=== PATIENT | female | born 2000 | race Caucasian/White ===

== ENCOUNTER 2019-09-29 18:20 | Emergency (ER) | payer BC ==
[~2019-09-29] VITALS: Ht 154.9 cm; Wt 40.0 kg
[2019-09-29 19:13] LABS: BILIRUBIN,URINE SMALL (NEG); CLARITY,URINE CLEAR; COLOR,URINE YELLOW; NITRITE,URINE NEGATIVE (NEG); PH,URINE 5.5 (<5.0-8.0); PROTEIN,URINE NEGATIVE (NEG-TRACE)
[2019-09-29] MEDS ORDERED: ONDANSETRON PF 4 MG/2 ML VIAL. IV ONE (19:15)
[2019-09-29] MEDS ORDERED: FAMOTIDINE 20 MG/2 ML VIAL IVP ONE (19:15)
[2019-09-29] MEDS ORDERED: IV NORMAL SALINE 1000ML BAG 1,000 ML IV ONE (19:15)
[2019-09-29 19:18] LABS: SQUAMOUS EPITHELIAL CELL,UR MANY /LPF
[2019-09-29 19:19] LABS: BACTERIA,URINE MODERATE /HPF (0-FEW); RBC,URINE OCC /HPF (0-2)
[2019-09-29 19:31] LABS: BASO # 0.1 x10^3/uL (0.0-0.2); BASO % 1 % (0-3); EOS # 0.1 x10^3/uL (0.0-0.7); EOS % 1 % (0-3); HEMATOCRIT 46.3 % (36.0-47.0); LYMPH # 2.4 x10^3/uL (1.0-4.8); LYMPH % 18 % (24-48); MEAN CORPUSCULAR HEMOGLOBIN 28 pg (25-35); MEAN CORPUSCULAR HGB CONC 35 g/dL (31-37); MEAN CORPUSCULAR VOLUME 82 fL (79-100); MONO # 1.4 x10^3/uL (0.0-1.1); MONO % 10 % (0-9); NEUT # 9.5 x10^3/uL (1.8-7.7); NEUT % 70 % (31-73); PLATELET COUNT 460 x10^3/uL (140-400); RED BLOOD COUNT 5.67 x10^6/uL (3.50-5.40); RED CELL DISTRIBUTION WIDTH 13.9 % (11.5-14.5); WHITE BLOOD COUNT 13.5 x10^3/uL (4.0-11.0)
[2019-09-29 19:34] LABS: CALCIUM 10.2 mg/dL (8.5-10.1); CREATININE 1.1 mg/dL (0.6-1.0); GFR 63.3; POTASSIUM 3.7 mmol/L (3.5-5.1)
[2019-09-29 19:40] LABS: ALBUMIN 5.4 g/dL (3.4-5.0); ALBUMIN/GLOBULIN RATIO 1.3 (1.0-1.7); MAGNESIUM 2.2 mg/dL (1.8-2.4); TOTAL BILIRUBIN 2.6 mg/dL (0.2-1.0); TOTAL PROTEIN 9.7 g/dL (6.4-8.2)
[2019-09-29] MEDS ORDERED: IV NORMAL SALINE 500ML BAG 500 ML IV ONE (20:00)
[2019-09-29] MEDS ORDERED: PROCHLORPERAZINE 10 MG/2 ML VIAL. IV ONE (20:15)
[2019-09-29 20:40] VITALS: BP 117/74
[2019-09-29] MEDS ORDERED: PROM25SU33 RC (20:54)
[2019-09-29] MEDS ORDERED: FAMO20TA5 PO (20:54)
--- NOTE | 2019-09-29 20:54 | PHYS DOC ---
Past Medical History Past Medical History: No Pertinent History (ZACH GARZA TOP LIFT NAILER) Smoking Status: Never Smoker Alcohol Use: None (ZACH GARZA APRN) General Adult EDM: Chief Complaint: NAUSEA/VOMITING/DIARRHA HPI: HPI: Patient is a 19 year old female who presents to the emergency department with complaints of nausea, vomiting, and epigastric pain for last 2 days. Patient states that she has been unable to keep anything down today. She denies any fever, cough, shortness of breath, dysuria, hematuria, hematemesis, low back pain, body aches, fatigue, headache, weakness, numbness, or tingling. Patient reports that her last menstrual cycle was approximately 3 weeks ago she states that the only control that she uses condoms. She denies any irregular vaginal discharge, vaginal odor, or vaginal bleeding. She currently denies any epigastric pain. Patient states she has felt lightheaded with position changes today but denies any syncopal episodes or headache. She reports that the pain is triggered by vomiting, and describes it as a burning sensation. She denies any alleviating factors. (ZACH GARZA TOP LIFT NAILER) Review of Systems: Review of Systems: Constitutional: Denies fever or chills. [] Eyes: Denies change in visual acuity. [] HENT: Denies nasal congestion or sore throat. [] Respiratory: Denies cough or shortness of breath. [] Cardiovascular: Denies chest pain or edema. [] GI: See HPI : Denies dysuria. [] Musculoskeletal: Denies back pain or joint pain. [] Integument: Denies rash. [] Neurologic: Denies headache, see HPI Endocrine: Denies polyuria or polydipsia. [] Lymphatic: Denies swollen glands. [] Psychiatric: Denies depression or anxiety. [] (ZACH GARZA APRN) Heart Score: Risk Factors: Risk Factors: DM, Current or recent (<one month) smoker, HTN, HLP, family history of CAD, obesity. Risk Scores: Score 0 - 3: 2.5% MACE over next 6 weeks - Discharge Home Score 4 - 6: 20.3% MACE over next 6 weeks - Admit for Clinical Observation Score 7 - 10: 72.7% MACE over next 6 weeks - Early Invasive Strategies (ZACH GARZA APRN) Current Medications: Current Medications Medications (Trade) Dose Ordered Sig/Jed Start Time Stop Time Status Last Admin Dose Admin Famotidine (Pepcid Vial) 20 mg 1X ONCE 09/29/19 19:15 09/29/19 19:21 DC 09/29/19 19:27 20 MG Ondansetron HCl (Zofran) 4 mg 1X ONCE 09/29/19 19:15 09/29/19 19:21 DC 09/29/19 19:27 4 MG Prochlorperazine Edisylate (Compazine) 10 mg 1X ONCE 09/29/19 20:15 09/29/19 20:16 DC 09/29/19 20:18 10 MG Sodium Chloride 500 ml @ 500 mls/hr 1X ONCE 09/29/19 20:00 09/29/19 20:59 09/29/19 20:00 500 MLS/HR (ZACH GARZA APRN) Allergies: Allergies: Allergies Coded Allergies Type Severity Reaction Last Updated Verified No Known Drug Allergies 09/29/19 No (ZACH GARZA APRN) Physical Exam: PE: Constitutional: Well developed, well nourished, no acute distress, ill appearance, HENT: Normocephalic, atraumatic, bilateral external ears normal, oropharynx dry, dry mucous membranes, nose normal. [] Eyes: PERRLA, EOMI, conjunctiva normal, no discharge. [] Neck: Normal range of motion, no stridor. [] Cardiovascular:Heart rate regular rhythm Lungs & Thorax: Bilateral breath sounds clear to auscultation, respirations even and unlabored, no retractions, no respiratory distress [] Abdomen: Bowel sounds normal, soft, epigastric tenderness to palpation, no rebound tenderness, no guarding, no masses, no pulsatile masses. [] Skin: Warm, dry, no erythema, no rash. [] Back: No CVA tenderness. [] Extremities: No cyanosis, ROM intact, no edema. [] Neurologic: Alert and oriented X 3, no focal deficits noted. [] Psychologic: Affect normal, judgement normal, mood normal. [] (ZACH GARZA APRN) Current Patient Data: Labs: Laboratory Tests Test 6/21/20 18:34 09/29/19 18:41 09/29/19 19:15 Urine Collection Type Unknown Urine Color Yellow Urine Clarity Clear Urine pH 5.5 (<5.0-8.0) Urine Specific [place] >=1.030 (1.000-1.030) Urine Protein Negative mg/dL (NEG-TRACE) Urine Glucose (UA) Negative mg/dL (NEG) Urine Ketones (Stick) >=80 mg/dL (NEG) Urine Blood Negative (NEG) Urine Nitrite Negative (NEG) Urine Bilirubin Small (NEG) Urine Urobilinogen Dipstick 1.0 mg/dL (0.2 mg/dL) Urine Leukocyte Esterase Small (NEG) Urine RBC Occ /HPF (0-2) Urine WBC 5-10 /HPF (0-4) Urine Squamous Epithelial Cells Many /LPF Urine Bacteria Moderate /HPF (0-FEW) Urine Mucus Marked /LPF POC Urine HCG, Qualitative Hcg negative (Negative) White Blood Count 13.5 x10^3/uL (4.0-11.0) H Red Blood Count 5.67 x10^6/uL (3.50-5.40) H Hemoglobin 16.0 g/dL (12.0-15.5) H Hematocrit 46.3 % (36.0-47.0) Mean Corpuscular Volume 82 fL (79-100) Mean Corpuscular Hemoglobin 28 pg (25-35) Mean Corpuscular Hemoglobin Concent 35 g/dL (31-37) Red Cell Distribution Width 13.9 % (11.5-14.5) Platelet Count 460 x10^3/uL (140-400) H Neutrophils (%) (Auto) 70 % (31-73) Lymphocytes (%) (Auto) 18 % (24-48) L Monocytes (%) (Auto) 10 % (0-9) H Eosinophils (%) (Auto) 1 % (0-3) Basophils (%) (Auto) 1 % (0-3) Neutrophils # (Auto) 9.5 x10^3/uL (1.8-7.7) H Lymphocytes # (Auto) 2.4 x10^3/uL (1.0-4.8) Monocytes # (Auto) 1.4 x10^3/uL (0.0-1.1) H Eosinophils # (Auto) 0.1 x10^3/uL (0.0-0.7) Basophils # (Auto) 0.1 x10^3/uL (0.0-0.2) Sodium Level 135 mmol/L (136-145) L Potassium Level 3.7 mmol/L (3.5-5.1) Chloride Level 94 mmol/L (98-107) L Carbon Dioxide Level 21 mmol/L (21-32) Anion Gap 20 (6-14) H Blood Urea Nitrogen 19 mg/dL (7-20) Creatinine 1.1 mg/dL (0.6-1.0) H Estimated GFR (Cockcroft-Gault) 63.3 BUN/Creatinine Ratio 17 (6-20) Glucose Level 97 mg/dL (70-99) Calcium Level 10.2 mg/dL (8.5-10.1) H Magnesium Level 2.2 mg/dL (1.8-2.4) Total Bilirubin 2.6 mg/dL (0.2-1.0) H Aspartate Amino Transferase (AST) 20 U/L (15-37) Alanine Aminotransferase (ALT) 25 U/L (14-59) Alkaline Phosphatase 79 U/L (46-116) Total Protein 9.7 g/dL (6.4-8.2) H Albumin 5.4 g/dL (3.4-5.0) H Albumin/Globulin Ratio 1.3 (1.0-1.7) Lipase 119 U/L (73-393) Laboratory Tests 09/29/19 19:15 Laboratory Tests 09/29/19 19:15 Vital Signs: Vital Signs Date Time Temp Pulse Resp B/P (MAP) Pulse Ox O2 Delivery O2 Flow Rate FiO2 09/29/19 18:45 98.4 61 16 141/94 (110) 100 Room Air 98.4 (ZACH GARZA APRN) EKG: EKG: [] (ZACH GARZA APRN) Radiology/Procedures: Radiology/Procedures: [] (ZACH GARZA APRN) Course & Med Decision Making: Course & Med Decision Making Pertinent Labs and Imaging studies reviewed. (See chart for details) Patient is a 19-year-old female who presented to the emergency department with complaints of 2 days of nausea and vomiting. Work-up included a CBC, CMP, UA, lipase, and magnesium level. Treatment included 1500 mL of normal saline, 4 mg of Zofran, 20 mg of alert for Pepcid, and 10 mg of Compazine CBC revealed a white count of 13.5, otherwise unremarkable; CMP revealed a sodium of 135, chloride of 94, anion gap of 20, creatinine of 1.1, total bilirubin of 2.6, and a calcium of 10.2; UA revealed a high specific gravity with greater than 80 ketones and 5-10 white blood cells, many squamous cells and moderate bacteria. Patient's urine hCG was negative. UA is likely to be contaminated. Will prescribe patient Phenergan suppositories and Pepcid. Encouraged the patient to follow a clear liquid diet for 24 hours then advance t o bland food morphine and as tolerated. Advised patient to follow-up with her primary provider if symptoms do not improve in 2 days. Patient verbalized an understanding of home care, medications, follow-up, and return to ED instructions and was in agreement with the plan of care. [] (ZACH GARZA APRN) Dragon Disclaimer: [place] Disclaimer: This electronic medical record was generated, in whole or in part, using a voice recognition dictation system. (ZACH GARZA APRN) Departure Departure Impression: Primary Impression: Nausea & vomiting Qualified Codes: R11.2 - Nausea with vomiting, unspecified Additional Impression: Acute gastritis without hemorrhage Qualified Codes: K29.00 - Acute gastritis without bleeding Disposition: HOME, SELF-CARE Condition: STABLE Referrals: NO PCP (PCP) Patient Instructions: Gastritis, Adult, [id number], Nausea and Vomiting, [id number] Additional Instructions: Fill prescriptions and use them as directed. Recommend clear fluids for the next 24 hours. Then you may advance to bland foods such as bananas, rice, applesauce, and dry toast. Follow-up with your primary care doctor in the next 1-2 days. Return to the emergency room if your symptoms worsen. Scripts Famotidine (FAMOTIDINE) 20 Mg Tablet 20 MG PO BID for 10 Days, #20 TAB 0 Refills Prov: ZACH GARZA APRN 09/29/19 Promethazine Hcl (PROMETHAZINE HCL) 25 Mg Supp.rect 25 MG RC Q6H PRN for NAUSEA/VOMITING for 3 Days, #12 SUPP.RECT 0 Refills Prov: ZACH GARZA APRN 09/29/19 Justicifation of Admission Dx: Justifications for Admission: Justification of Admission Dx: No (ZACH GARZA APRN) Attending Signature Attending Signature I have reviewed the PA/REAL ESTATE ATTORNEY's note and plan of care. I was available for consult ation as needed during the patient's visit in the emergency department. I agree with the clinical impression, plan, and disposition. (SERGIO BAÑUELOS DO) ZACH GARZA APRN Sep 29, 2019 20:54 SERGIO BAÑUELOS DO Sep 30, 2019 02:55
== END 2019-09-29 21:09 | disposition home or self-care (01) ==
LOC: ER 18:20
DX: K29.00 Acute gastritis without bleeding (principal); R11.2 Nausea with vomiting, unspecified; R10.13 Epigastric pain; R42 Dizziness and giddiness; Z79.899 Other long term (current) drug therapy
CPT/HCPCS: 36415; 80053; 81001; 81025; 83690; 83735; 85025; 87086; 96374; 96375; 99284; J0780; J2405; J3490; J7030; J7040

== ENCOUNTER 2020-09-15 23:46 | Emergency (ER) | payer BC ==
[~2020-09-15] VITALS: Ht 154.9 cm; Wt 44.6 kg
[~2020-09-15 23:46] MED LIST: FAMO20TA5 PO; PROM25SU33 RC
[2020-09-16 00:26] LABS: BILIRUBIN,URINE NEGATIVE (NEG); CLARITY,URINE CLEAR; COLOR,URINE YELLOW; NITRITE,URINE NEGATIVE (NEG); PH,URINE 8.5 (<5.0-8.0); PROTEIN,URINE NEGATIVE (NEG-TRACE)
[2020-09-16 00:31] LABS: BACTERIA,URINE FEW /HPF (0-FEW)
[2020-09-16 00:44] LABS: BASO # 0.1 x10^3/uL (0.0-0.2); BASO % 1 % (0-3); EOS % 0 % (0-3); HEMATOCRIT 37.1 % (36.0-47.0); HEMOGLOBIN 12.5 g/dL (12.0-15.5); LYMPH % 10 % (24-48); MEAN CORPUSCULAR HEMOGLOBIN 26 pg (25-35); MEAN CORPUSCULAR HGB CONC 34 g/dL (31-37); MEAN CORPUSCULAR VOLUME 78 fL (79-100); MONO # 0.5 x10^3/uL (0.0-1.1); MONO % 5 % (0-9); NEUT # 8.7 x10^3/uL (1.8-7.7); NEUT % 84 % (31-73); PLATELET COUNT 376 x10^3/uL (140-400); RED BLOOD COUNT 4.74 x10^6/uL (3.50-5.40); RED CELL DISTRIBUTION WIDTH 16.2 % (11.5-14.5); WHITE BLOOD COUNT 10.4 x10^3/uL (4.0-11.0)
[2020-09-16 00:57] LABS: ALBUMIN/GLOBULIN RATIO 1.6 (1.0-1.7); CALCIUM 9.3 mg/dL (8.5-10.1); MAGNESIUM 1.6 mg/dL (1.8-2.4); TOTAL BILIRUBIN 1.2 mg/dL (0.2-1.0); TOTAL PROTEIN 8.1 g/dL (6.4-8.2)
[2020-09-16] MEDS ORDERED: PROCHLORPERAZINE 10 MG/2 ML VIAL. IV ONE (01:00)
[2020-09-16] MEDS ORDERED: IV NORMAL SALINE 1000ML BAG 1,000 ML IV ONE (01:00)
--- NOTE | 2020-09-16 01:10 | EKG ---
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
[2020-09-16] MEDS ORDERED: FAMOTIDINE 20 MG/2 ML VIAL ONE (02:57)
[2020-09-16] MEDS ORDERED: METOCLOPRAMIDE HCL 10 MG/2 ML VIAL. ONE (03:00)
[2020-09-16 03:37] VITALS: BP 160/64
--- NOTE | 2020-09-16 21:59 | ED.ADGEN ---
Past Medical History Past Medical History: No Pertinent History Past Surgical History: No Surgical History Smoking Status: Current Some Day Smoker Alcohol Use: Rarely General Adult EDM: Chief Complaint: NAUSEA/VOMITING/DIARRHEA HPI: HPI: Patient is a 20-year-old female who presents to the emergency room complaining of generalized abdominal pain with nausea and vomiting. Patient is also had some diarrhea. She states that the pain is severe in nature. She states she is unable to keep anything down. She denies any fever, chills, sweats, cough, chest pain. She had a similar episode about 1 year ago and at that time was diagnosed with gastroenteritis. She was referred to a GI specialist who recommended that she have an EGD done, however her symptoms resolved and she did not follow-up. Review of Systems: Review of Systems: Complete ROS is negative unless otherwise documented in HPI Current Medications: Current Medications Medications (Trade) Dose Ordered Sig/Jed Start Time Stop Time Status Last Admin Dose Admin Famotidine (Pepcid Vial) 20 mg STK-MED ONCE 09/16/20 02:57 09/16/20 06:01 DC Metoclopramide HCl (Reglan Vial) 10 mg STK-MED ONCE 09/16/20 03:00 09/16/20 06:01 DC Prochlorperazine Edisylate (Compazine) 10 mg 1X ONCE 09/16/20 01:00 09/16/20 01:01 DC 09/16/20 00:50 10 MG Sodium Chloride 1,000 ml @ 1,000 mls/hr 1X ONCE 09/16/20 01:00 09/16/20 05:57 DC 09/16/20 00:50 1,000 MLS/HR Allergies: Allergies: Allergies Coded Allergies Type Severity Reaction Last Updated Verified No Known Drug Allergies 09/29/19 No Physical Exam: PE: General: Awake, alert, NAD. Well Nourished, well hydrated. Cooperative HEENT: Atraumatic, EOMI, PERRL, airway patent, moist oral mucosa Neck: Supple, trachea midline Respiratory: CTA bilaterally, normal effort, no wheezing/crackles CV: RRR, no murmur, cap refill <2 GI: Soft, nondistended, diffuse minimal tenderness without rebound or guarding, no masses MSK: No obvious deformities Skin: Warm, dry, intact Neuro: A&O x3, speech NL, sensory and motor grossly intact, no focal deficits Psych: Normal affect, normal mood, not suicidal or homicidal Current Patient Data: Labs: Laboratory Tests Test 09/16/20 00:04 09/16/20 00:09 09/16/20 00:35 Urine Collection Type Unknown Urine Color Yellow Urine Clarity Clear Urine pH 8.5 (<5.0-8.0) Urine Specific [place] 1.025 (1.000-1.030) Urine Protein Negative mg/dL (NEG-TRACE) Urine Glucose (UA) Negative mg/dL (NEG) Urine Ketones (Stick) >=80 mg/dL (NEG) Urine Blood Trace (NEG) Urine Nitrite Negative (NEG) Urine Bilirubin Negative (NEG) Urine Urobilinogen Dipstick 1.0 mg/dL (0.2 mg/dL) Urine Leukocyte Esterase Small (NEG) Urine RBC 1-2 /HPF (0-2) Urine WBC 11-20 /HPF (0-4) Urine Squamous Epithelial Cells Many /LPF Urine Bacteria Few /HPF (0-FEW) Urine Mucus Marked /LPF POC Urine HCG, Qualitative Hcg negative (Negative) White Blood Count 10.4 x10^3/uL (4.0-11.0) Red Blood Count 4.74 x10^6/uL (3.50-5.40) Hemoglobin 12.5 g/dL (12.0-15.5) Hematocrit 37.1 % (36.0-47.0) Mean Corpuscular Volume 78 fL (79-100) L Mean Corpuscular Hemoglobin 26 pg (25-35) Mean Corpuscular Hemoglobin Concent 34 g/dL (31-37) Red Cell Distribution Width 16.2 % (11.5-14.5) H Platelet Count 376 x10^3/uL (140-400) Neutrophils (%) (Auto) 84 % (31-73) H Lymphocytes (%) (Auto) 10 % (24-48) L Monocytes (%) (Auto) 5 % (0-9) Eosinophils (%) (Auto) 0 % (0-3) Basophils (%) (Auto) 1 % (0-3) Neutrophils # (Auto) 8.7 x10^3/uL (1.8-7.7) H Lymphocytes # (Auto) 1.0 x10^3/uL (1.0-4.8) Monocytes # (Auto) 0.5 x10^3/uL (0.0-1.1) Eosinophils # (Auto) 0.0 x10^3/uL (0.0-0.7) Basophils # (Auto) 0.1 x10^3/uL (0.0-0.2) Sodium Level 142 mmol/L (136-145) Potassium Level 3.0 mmol/L (3.5-5.1) L Chloride Level 104 mmol/L (98-107) Carbon Dioxide Level 20 mmol/L (21-32) L Anion Gap 18 (6-14) H Blood Urea Nitrogen 10 mg/dL (7-20) Creatinine 1.0 mg/dL (0.6-1.0) Estimated GFR (Cockcroft-Gault) 70.0 BUN/Creatinine Ratio 10 (6-20) Glucose Level 168 mg/dL (70-99) H Calcium Level 9.3 mg/dL (8.5-10.1) Magnesium Level 1.6 mg/dL (1.8-2.4) L Total Bilirubin 1.2 mg/dL (0.2-1.0) H Aspartate Amino Transferase (AST) 24 U/L (15-37) Alanine Aminotransferase (ALT) 21 U/L (14-59) Alkaline Phosphatase 54 U/L (46-116) Total Protein 8.1 g/dL (6.4-8.2) Albumin 5.0 g/dL (3.4-5.0) Albumin/Globulin Ratio 1.6 (1.0-1.7) Lipase 82 U/L (73-393) Laboratory Tests 09/16/20 00:35 Laboratory Tests 09/16/20 00:35 Vital Signs: Vital Signs Date Time Temp Pulse Resp B/P (MAP) Pulse Ox O2 Delivery O2 Flow Rate FiO2 09/16/20 03:37 72 160/64 (96) 97 Room Air 09/16/20 00:00 98.0 18 98.0 EKG: EKG: [] Heart Score: C/O Chest Pain: N/A Risk Factors: Risk Factors: DM, Current or recent (<one month) smoker, HTN, HLP, family history of CAD, obesity. Risk Scores: Score 0 - 3: 2.5% MACE over next 6 weeks - Discharge Home Score 4 - 6: 20.3% MACE over next 6 weeks - Admit for Clinical Observation Score 7 - 10: 72.7% MACE over next 6 weeks - Early Invasive Strategies Radiology/Procedures: Radiology/Procedures: [] Course & Med Decision Making: Course & Med Decision Making Pertinent Labs and Imaging studies reviewed. (See chart for details) Patient is a 20-year-old female presents to the emergency room with generalized abdominal pain and vomiting. Patient does appear to be dehydrated on exam. Her abdominal exam shows generalized tenderness without any pinpoint tenderness. She does not have any rebound or guarding. Pain is likely due to multiple episodes of vomiting. She was treated symptomatically here in the emergency room. Pain went down to a 2 out of 10. Lab work is unremarkable. We will place her on Zofran at home. I recommended that they get some [id number] Nexium to help her stomach heal. I have referred her to GI for further work-up as she has had multiple episodes of this in the past. At this time there is no concern for appendicitis or acute cholecystitis. Patient does not have pinpoint tenderness that would relate to this and lab work is reassuring. Patient's test results and vitals while in the ED were fully reviewed and discussed with the patient. Patient is stable and at this time does not need admission to the hospital. We have discussed strict return precautions and the importance of following up with their Primary Care Physician. Patient stated understanding and was given an opportunity to ask any questions. Patient is in agreement with plan. Dragon Disclaimer: [place] Disclaimer: This electronic medical record was generated, in whole or in part, using a voice recognition dictation system. Departure Departure Impression: Primary Impression: Nausea & vomiting Disposition: 01 HOME / SELF CARE / HOMELESS Condition: STABLE Referrals: NO PCP (PCP) KENDALL MEJIAS MD Sep 16, 2020 21:59
== END 2020-09-16 03:50 | disposition home or self-care (01) ==
LOC: ER 23:46
DX: R11.2 Nausea with vomiting, unspecified (principal); R10.84 Generalized abdominal pain; R19.7 Diarrhea, unspecified; F17.200 Nicotine dependence, unspecified, uncomplicated
CPT/HCPCS: 36415; 80053; 81001; 81025; 83690; 83735; 85025; 93005; 96361; 96374; 99285; J0780; J7030